=== PATIENT | male | born 1950 | race Caucasian/White ===

== ENCOUNTER → 2023-11-23 10:17 | Outpatient (REF) | payer MEDICARE, OTHER, SELFPAY | LOC: RAD 10:17 | PROVIDERS: ATTENDING PHYSICIAN Nurse Practitioner Family | DX: M25.521 Pain in right elbow (principal) | CPT/HCPCS: 73080 ==

== ENCOUNTER → 2024-04-04 12:41 | Outpatient (REF) | payer MEDICARE, OTHER, SELFPAY | LOC: HWRCS 12:41 | PROVIDERS: ATTENDING PHYSICIAN Internal Medicine; FAMILY PHYSICIAN Family Medicine | DX: I38 Endocarditis, valve unspecified (principal); I34.0 Nonrheumatic mitral (valve) insufficiency; I35.9 Nonrheumatic aortic valve disorder, unspecified; Z95.4 Presence of other heart-valve replacement; I35.1 Nonrheumatic aortic (valve) insufficiency | CPT/HCPCS: 93306 ==

== ENCOUNTER 2025-03-08 06:28 | Day surgery (SDC) | payer MEDICARE, OTHER, SELFPAY | END 2025-03-08 15:43 | disposition home or self-care (01) | LOC: GI 06:28 | PROVIDERS: ATTENDING PHYSICIAN Internal Medicine Gastroenterology; FAMILY PHYSICIAN Family Medicine | DX: Z12.11 Encounter for screening for malignant neoplasm of colon (principal); K57.30 Diverticulosis of large intestine without perforation or abscess without bleeding; K64.8 Other hemorrhoids; D12.2 Benign neoplasm of ascending colon; Z86.0100 Personal history of colon polyps, unspecified | CPT/HCPCS: 45380; 88305 ==

== ENCOUNTER → 2025-04-20 10:09 | Outpatient (REF) | payer MEDICARE, OTHER, SELFPAY | LOC: RCS 10:09 | PROVIDERS: ATTENDING PHYSICIAN Internal Medicine; FAMILY PHYSICIAN Family Medicine | DX: I38 Endocarditis, valve unspecified (principal); I34.0 Nonrheumatic mitral (valve) insufficiency; I35.1 Nonrheumatic aortic (valve) insufficiency | CPT/HCPCS: 93306 ==